=== PATIENT | female | born 1990 | race Caucasian/White ===

== ENCOUNTER 2021-06-24 10:04 | Emergency (ER) | payer OTHER ==
[2021-06-24 11:52] LABS: HEMOGLOBIN 11.4 gm/dl (12.3-15.3); RED BLOOD COUNT 4.05 M/UL (4.00-5.10); WHITE BLOOD COUNT 8.8 K/UL (4.5-11.0)
[2021-06-24 12:12] LABS: BUN/CREATININE RATIO 12 (0-10)
[2021-06-24] MEDS ORDERED: ONDANSETRON ODT4 MG SL (15:19)
[2021-06-24] MEDS ORDERED: TORADOL 10 MG T10 MG PO (15:19)
[2021-06-24] MEDS ORDERED: CEFUROXIME500 MG PO (15:19)
== END 2021-06-24 17:13 | disposition home or self-care (01) ==
LOC: ER1 10:04
DX: N39.0 Urinary tract infection, site not specified (principal); R31.9 Hematuria, unspecified; Z87.442 Personal history of urinary calculi
CPT/HCPCS: 74018; 80053; 81001; 83690; 84703; 85025; 87077; 87086; 87186; 96374; 99284; J1885